=== PATIENT | female | born 1995 | race Hispanic/Latino ===

== ENCOUNTER 2017-11-17 06:12 | Inpatient (IN) | payer MEDICAID, OTHER ==
[2017-11-17 06:47] VITALS: BMI 25.9
[2017-11-17] MEDS ORDERED: Lidocaine 1% (PF) 30 ML VIAL ONE (06:55)
[2017-11-17] MEDS ORDERED: LR / Pitocin 40 units/1000 ml 1,000 ML ONE (06:55)
[2017-11-17] MEDS ORDERED: LR / Pitocin 40 units/1000 ml 1,000 ML IV PRN (06:56)
[2017-11-17] MEDS ORDERED: Promethazine HCl 25 MG/ML VIAL IM PRN (06:56)
[2017-11-17] MEDS ORDERED: Lidocaine 1% (PF) 30 ML VIAL SC PRN (06:56)
[2017-11-17] MEDS ORDERED: Carboprost 250 MCG/ML AMP IM PRN (06:56)
[2017-11-17] MEDS ORDERED: Diphenoxylate HCl/Atropine Tablet PO PRN ×2 (06:56)
[2017-11-17] MEDS ORDERED: Ibuprofen 800 MG TAB PO PRN (06:56)
[2017-11-17] MEDS ORDERED: Misoprostol 200 MCG TAB PR PRN (06:56)
[2017-11-17] MEDS ORDERED: Ondansetron HCl/PF 4 MG/2 ML Vial IVP PRN ×2 (06:56→10:18)
[2017-11-17] MEDS ORDERED: Methylergonovine 0.2 MG/ML VIAL IM PRN (06:56)
[2017-11-17] MEDS ORDERED: Acetaminophen 500 MG TAB PO PRN (06:56)
[2017-11-17] MEDS ORDERED: HYDROcodone/Acetaminophen 5/325 mg Tablet PO PRN ×4 (06:56→10:18)
[2017-11-17] MEDS ORDERED: Lactated Ringer's 1,000 ML IV SCH (07:00)
[2017-11-17 07:31] LABS: Hemoglobin 10.4 g/dL (12.0-16.0); Mean Corpuscular HGB CONC 33.2 g/dL (32.0-36.0); Mean Corpuscular Hemoglobin 25.9 pg (25.0-35.0); Mean Corpuscular Volume 77.9 fl (77.0-87.0); Mean Platelet Volume 7.8 fL (7.4-10.4); Platelet Count 250 thou/uL (130-400); RBC Distribution Width 14.1 % (11.5-14.5); Red Blood Cell (RBC) Count 4.04 mill/uL (4.00-5.20)
[2017-11-17 08:10] LABS: HBSAg Index 0.21 S/CO (0-0.99); Hep B Surf Ag Non-Reactive S/CO (NonReactive); Syphilis Antibody Nonreactive (Nonreactive); Syphilis Antibody Index 0.05 S/CO (<1.00 Non-Reactive)
[2017-11-17] MEDS ORDERED: Prenatal Vitamin 1 TAB PO SCH ×2 (10:18→10:45)
[2017-11-17] MEDS ORDERED: Docusate Calcium (SURFAK) 240 MG CAP PO SCH ×2 (10:18→10:30)
[2017-11-17] MEDS ORDERED: Ferrous Sulfate 325 MG TAB PO SCH ×2 (10:18→10:30)
[2017-11-17] MEDS ORDERED: LR / Pitocin 40 units/1000 ml 1,000 ML IV SCH (10:18)
[2017-11-17] MEDS ORDERED: Bisacodyl 10 MG SUPP PR PRN (10:18)
[2017-11-17] MEDS ORDERED: Milk Of Magnesia 30 ML UDCUP PO PRN (10:18)
[2017-11-17] MEDS ORDERED: Sodium Chloride 0.9% 10 ML ONE (12:58)
[2017-11-17] MEDS: Ibuprofen 800 MG TAB PO SCH (16:03)
[2017-11-17] MEDS: Ferrous Sulfate 325 MG TAB PO SCH (18:52)
[2017-11-18 06:17] LABS: Hemoglobin 9.2 g/dL (12.0-16.0); Mean Corpuscular Hemoglobin 25.3 pg (25.0-35.0); Mean Corpuscular Volume 79.1 fl (77.0-87.0); Mean Platelet Volume 7.7 fL (7.4-10.4); Platelet Count 196 thou/uL (130-400); RBC Distribution Width 14.1 % (11.5-14.5); Red Blood Cell (RBC) Count 3.64 mill/uL (4.00-5.20); White Blood Cell (WBC) Count 8.2 thou/uL (4.8-10.8)
[2017-11-18] MEDS: Ibuprofen 800 MG TAB PO SCH ×3 (06:19→14:24)
[2017-11-18 08:27] VITALS: BP 85/50; TEMP 98.3
[2017-11-18] MEDS: Ferrous Sulfate 325 MG TAB PO SCH ×2 (08:53→17:34)
[2017-11-18] MEDS: Docusate Calcium (SURFAK) 240 MG CAP PO SCH ×2 (08:54→13:39)
[2017-11-18] MEDS ORDERED: Prenatal Vitamin 1 TAB PO SCH (09:00)
== END 2017-11-18 18:20 | disposition home or self-care (01) | DRG 775 ==
LOC: L&D/OP 06:12 → L&D 07:24 → 3SW 09:53
PROVIDERS: ADMIT Family Medicine; ATTEND Family Medicine
PROC: 10E0XZZ Delivery of Products of Conception, External Approach (ICD-10-PCS; principal; 2017-11-17)
DX: O80 Encounter for full-term uncomplicated delivery (principal); Z23 Encounter for immunization; Z37.0 Single live birth; Z3A.37 37 weeks gestation of pregnancy
CPT/HCPCS: 36415; 85027; 85461; 86780; 87340; 90384; 96372; 99285; A4216; J2001

== ENCOUNTER 2018-03-19 23:48 | Emergency (ER) | payer MEDICAID | END 2018-03-20 00:32 | disposition home or self-care (01) | LOC: ERS 23:48 | DX: S06.0X0A Concussion without loss of consciousness, initial encounter (principal); W19.XXXA Unspecified fall, initial encounter | CPT/HCPCS: 99283 ==

== ENCOUNTER 2018-05-03 03:46 | Emergency (ER) | payer MEDICAID, OTHER, SELFPAY ==
[2018-05-03] MEDS ORDERED: Mag-Al 1200 mg/1200 mg/30 ML UDCUP ONE (03:57)
[2018-05-03] MEDS ORDERED: Lidocaine Viscous Sol 2% 15 ml UD Cup ONE (03:57)
[2018-05-03] MEDS ORDERED: Sucralfate 1 GM TAB PO SCH (04:45)
--- NOTE | 2018-05-03 07:32 | RAD ---
SINGLE VIEW OF THE CHEST: COMPARISON: None. HISTORY: Chest pain. FINDINGS: Single view of the chest shows a normal sized cardiomediastinal silhouette. There is no evidence of c onsolidation, mass, or pleural effusion. The bones are unremarkable. IMPRESSION: No evidence of acute cardiopulmonary disease. POS: C
== END 2018-05-03 05:05 | disposition home or self-care (01) ==
LOC: ERS 03:46
DX: R10.13 Epigastric pain (principal)
CPT/HCPCS: 71045; 93005